=== PATIENT | female | born 1995 | race Caucasian/White ===

== ENCOUNTER 2016-07-23 09:50 | Emergency (ER) | payer BC ==
[~2016-07-23] VITALS: Ht 160 cm; Wt 69.7 kg
[~2016-07-23 09:50] MED LIST: BCPILLS PO; IBUP-103 PO; LISD40CA PO
[2016-07-23 09:55] VITALS: TEMP 37.2; Ht 160 cm; Wt 69.7 kg
[2016-07-23] MEDS ORDERED: OXYC1TAB3 PO (10:20)
[2016-07-23] MEDS ORDERED: SULF800T23 PO (10:20)
[2016-07-23] MEDS ORDERED: CEPH500C PO (10:20)
[2016-07-23 10:36] VITALS: BP 141/98; PULSE 121; O2SAT 98
--- NOTE | 2016-07-23 16:19 | EMERGENCY ROOM VISIT NOTE ---
History First contact with patient: 10:07 Chief Complaint: RASH Stated Complaint: RASH AND SWELLING IN R BREAST History of Present Illness The patient is a 21 year old female who presents to the Emergency Room with complaints of right breast swelling, redness and pain. The patient reports that she awoke this morning with the discomfort, and noticed that her breast was red. She does have nipple piercings. She also had a right breast mastitis/ infection exactly 1 month ago, and was treated with an unknown antibiotic with complete resolution. The patient reports that she did notice some thickening of the breast since her last infection. She denies any fever at this time, although she did have a fever with her last infection. The patient reports that the nipple ring was not removed with her last infection. She currently rates her discomfort a 2 out of 10. Tetanus immunization is up-to-date. Review of Systems 10 system review was performed and was negative except for pertinent positives and negatives as indicated in history of present illness Past Medical/Surgical History Medical Problems: (1) No known health problems Family History Diabetes mellitus FH: cancer Social History Smoking Status: Never Smoker Alcohol Use: occasionally Marital Status: single Occupation Status: [employer] student Current/Historical Medications Scheduled Control Pills ( Control Pills), 1 TAB PO DAILY Cephalexin Monohydrate (Keflex), 500 MG PO QID Lisdexamfetamine Dimesylate (Vyvanse), 40 MG PO DAILY Sulfa/Trimethoprim (Bactrim Ds 800MG/160MG), 1 TAB PO BID Scheduled PRN Ibuprofen Tab (Advil), 400 MG PO Q6 PRN for Pain or Fever Oxycodone Ir (Roxicodone Ir), 1-2 TAB PO Q4H PRN for Pain Physical Exam Vital Signs Date Time Temp Pulse Resp B/P Pulse Ox O2 Delivery O2 Flow Rate FiO2 07/23/16 10:36 121 18 141/98 98 07/23/16 09:55 37.2 100 18 131/87 96 Room Air Physical Exam CONSTITUTIONAL: Healthy and well nourished. Alert and oriented X 3 with positive affect. HEENT: Normocephalic, atraumatic. Pupils equal, round and reactive. NECK: Full active range of motion without discomfort. RESPIRATORY: Clear to auscultation bilaterally with no wheezing, crackles, rhonchi or stridor. CARDIOVASCULAR: Regular rate and rhythm with no murmurs, rubs or gallops. BREAST: With a female nurse receipt and report clerk present, examination of the right brow shows significant erythema around the anterior portion of the breast. It extends approximately 3 cm past the areola in all directions. Close examination shows a wound breakdown over the lateral piercing site. There is crusting of the nipple. No obvious purulent drainage, fluctuance or induration about the site. MUSCULOSKELETAL: Patient has no other tenderness to palpation across the right anterior chest wall. INTEGUMENTARY: No rash or other significant dermatologic conditions noted. NEUROLOGIC: No focal neurologic deficits noted. Medical Decision & Procedures ED Course Patient history and physical exam were performed. Nurse's notes were reviewed. Examination is consistent with a cellulitis of the breast. The patient was encouraged to remove her piercing until the infection complete resolves. I did show her the site of skin breakdown that was probably the source of her infection. She was provided prescriptions for Keflex, Bactrim DS and OxyIR. She was instructed to return to the emergency department for any progressively worsening infection, otherwise encouraged to follow up with [facility] as needed for any further wound management. The patient was happy with plan of care, voiced understanding of all discharge instructions, and rated her pain a 2 out of 10 at the time of discharge. She refused any analgesics while in the emergency department. Medical Decision Impression Primary Impression: Cellulitis of right breast Departure Information Dispostion Home / Self-Care Prescriptions Oxycodone Ir (Roxicodone Ir) 5 Mg Tab 1-2 TAB PO Q4H Y for Pain, #15 TAB For Initial Treatment Prov: Macario Pina PA 07/23/16 Sulfa/Trimethoprim (Bactrim Ds 800MG/160MG) Tab 1 TAB PO BID, #14 TAB Prov: Macario Pina PA 07/23/16 Cephalexin Monohydrate (Keflex) 500 Mg Cap 500 MG PO QID for 7 Days, #28 CAP Prov: Macario Pina PA 07/23/16 Referrals No Doctor, Assigned [facility] (PCP) Forms HOME CARE DOCUMENTATION FORM, IMPORTANT VISIT INFORMATION Patient Instructions My [facility] Additional Instructions Complete all Keflex and Bactrim DS antibiotics as prescribed. Keep nipple area covered with an antibiotic ointment. Suggest removing the piercing until the wound completely heals. Ibuprofen 800 mg and/or Tylenol 1000 mg every 8 hours. You may also alternate these medications for more effective pain relief: Ibuprofen --4 HRS--> Tylenol --4 HRS--> ibuprofen --4 HRS--> Tylenol .... OxyIR if needed for worse pain. Do not drink or drive while taking OxyIR. Return to the emergency department immediately for any progressively worsening redness, swelling, pain or fever.
== END 2016-07-23 10:36 | disposition home or self-care (01) ==
LOC: C.EDB 09:52 → C.EDA 10:36
DX: N61.0 Mastitis without abscess (principal); Z79.899 Other long term (current) drug therapy; Z83.3 Family history of diabetes mellitus; Z80.9 Family history of malignant neoplasm, unspecified